=== PATIENT | female | born 1955 ===

== ENCOUNTER 2021-10-02 12:57 | Outpatient (RCR) | payer MEDICARE, SELFPAY | END 2021-10-30 23:59 | disposition home or self-care (01) | LOC: MPT 12:57 | DX: R39.89 Other symptoms and signs involving the genitourinary system (principal) | CPT/HCPCS: 97140; 97161; 97530 ==

== ENCOUNTER 2021-10-31 06:00 | Outpatient (RCR) | payer MEDICARE, SELFPAY | END 2021-11-30 23:59 | disposition home or self-care (01) | LOC: MPT 06:00 | PROVIDERS: Visit Provider Registered Nurse | DX: R39.89 Other symptoms and signs involving the genitourinary system (principal) | CPT/HCPCS: 97110; 97140; 97530 ==

== ENCOUNTER 2021-12-01 06:00 | Outpatient (RCR) | payer MEDICARE, SELFPAY | END 2021-12-31 23:59 | disposition home or self-care (01) | LOC: MPT 06:00 | PROVIDERS: Visit Provider Registered Nurse | DX: R39.89 Other symptoms and signs involving the genitourinary system (principal) | CPT/HCPCS: 97140; 97530 ==

== ENCOUNTER 2022-01-29 06:00 | Outpatient (RCR) | payer MEDICARE, SELFPAY | END 2022-02-28 23:59 | disposition home or self-care (01) | LOC: MPT 06:00 | PROVIDERS: Visit Provider Registered Nurse | DX: R39.89 Other symptoms and signs involving the genitourinary system (principal) | CPT/HCPCS: 97530 ==